=== PATIENT | male | born 1965 | race Caucasian/White ===

== ENCOUNTER 2020-01-02 00:35 | Outpatient (CLI) | payer BC, OTHER, SELFPAY | END 2020-01-02 00:36 | disposition home or self-care (01) | LOC: ANHCOVIDDT 00:36 | PROVIDERS: PCP Family Medicine; Visit Provider Internal Medicine Gastroenterology | DX: Z01.818 Encounter for other preprocedural examination (principal); Z11.59 Encounter for screening for other viral diseases | CPT/HCPCS: 87635; C9803; U0003 ==

== ENCOUNTER 2020-01-05 00:49 | Day surgery (SDC) | payer BC, OTHER, SELFPAY ==
[2019-12-31 14:29] VITALS: BMI 33.8
--- NOTE | 2020-01-05 09:19 | P.PNAN_ITS ---
Anes - Initial Pre Proc Eval Procedure: Operation Date: 01/05/20 10:00 Proposed Procedures p Screening Colonoscopy - Gagan Arroyo MD Date/Time: 01/05/20 09:19 Surgeon: Gagan Arroyo MD Pre Op Diagnosis: Neoplasm Screening Patient Data Age: 54 Gender: M Height: 5 ft 7 in Weight: 98 kg Allergies Allergy/AdvReac Type Severity Reaction Status Date / Time No Known Allergies Allergy Verified 01/05/20 09:16 Home Medications Medication Instructions Recorded Confirmed Type pregabalin 225 mg capsule 225 mg PO BID #60 cap 07/28/19 12/31/19 Rx lisinopril 20 mg tablet 20 mg PO DAILY #30 tablet 09/24/19 12/31/19 Rx gabapentin 300 mg capsule 300 mg PO TID #90 cap 10/12/19 12/31/19 Rx meloxicam 15 mg tablet 15 mg PO DAILY PRN #30 tablet 11/16/19 12/31/19 Rx hydrocodone 10 mg-acetaminophen 1 tablet PO Q4H PRN #180 tablet 12/10/19 0 12/31/19 Rx 325 mg tablet cholecalciferol (vitamin D3) 25 25 mcg PO DAILY 12/28/19 12/31/19 History mcg (1,000 unit) capsule esomeprazole magnesium 20 mg 40 mg PO DAILY cap 12/28/19 12/31/19 History capsule,delayed release fluoxetine 20 mg tablet 20 mg PO DAILY #30 tablet 12/28/19 12/31/19 Rx diphenhydramine HCl [Benadryl 25 mg PO HS PRN 12/31/19 12/31/19 History Allergy] orphenadrine citrate 100 mg 100 mg PO Q12H #60 tablet 01/01/20 Rx tablet,extended release Patient hx anesthesia problems: none Family hx anesthesia problems: none PMFSH Past Medical History Medical History Encounter for prostate cancer screening Essential (primary) hypertension Mixed hyperlipidemia Polyp of colon Vitamin B12 deficiency anemia Vitamin D insufficiency Family History Family History Mother Diabetes mellitus Hypertension Social History Social History Smoking status: Never smoker Alcohol intake: current Anes - Eval Final PreProcedure Day of Procedure 01/05/20 09:19 Patient weight: obese Heart: regular rate and rhythm Lungs: clear to auscultation Airway: Mallampati scale class 1 Neurological: alert and oriented Last oral intake: >/= 8 hours ASA classification: III Emergent: no Anesthetic plan: proceed Anesthesia type and monitoring: general GIVS and standard monitoring Informed Consent: The patient's anesthetic plan and its attendant risks and benefits were discussed with the patient/family/POA. Questions were solicited and answers provided to the satisfaction of the patient/family/POA.
[2020-01-05 09:22] VITALS: BP 121/84; PULSE 128; RESP 16; TEMP 36.2; O2SAT 97
[2020-01-05] MEDS: LACTATED RINGERS 1,000 ML 150 ML IV CONT (09:45)
--- NOTE | 2020-01-05 10:28 | PM.HPGS ---
History of Present Illness History of Present Illness Consent: Risks, benefits, and alternatives have been discussed and questions answered. Patient agrees to proceed with procedure. Chief complaint: Neoplasm Screening Narrative: Joel Fiore is a 54 year old male with history of polyps, due to have another colonoscopy Review of Systems Constitutional: Constitutional: Denies headache(s) and Denies weakness Eyes: Eyes: Denies blurry vision ENT: Reports Normal hearing present, Denies headache(s) and Denies neck pain Cardiovascular: Cardiovascular: Denies chest pain and Denies dyspnea Respiratory: Respiratory: Denies dyspnea Gastrointestinal: Gastrointestinal: Reports no additional gastrointestinal complaints Genitourinary: Genitourinary: Denies dysuria Musculoskeletal: Musculoskeletal: Denies neck pain Integumentary/Breasts: Skin/Breast: Denies dry skin Neurologic: Reports Normal hearing present, Denies headache(s) and Denies weakness Psychiatric: Psychiatric: Denies anxiety Endocrine: Endocrine: Denies change in body appearance Hematologic/Lymphatic: Hematologic/Lymphatic: Denies easy bleeding Allergic/Immunologic: Allergic/Immunologic: Denies urticaria PMFSH Past Medical History Medical History Encounter for prostate cancer screening Essential (primary) hypertension Mixed hyperlipidemia Polyp of colon Vitamin B12 deficiency anemia Vitamin D insufficiency Family History Family History Mother Diabetes mellitus Hypertension Social History Social History Smoking status: Never smoker Alcohol intake: current Meds Home Medications and Allergies Home Medications Medication Instructions Recorded Confirmed Type pregabalin 225 mg capsule 225 mg PO BID #60 cap 07/28/19 12/31/19 Rx lisinopril 20 mg tablet 20 mg PO DAILY #30 tablet 09/24/19 01/05/20 Rx gabapentin 300 mg capsule 300 mg PO TID #90 cap 10/12/19 12/31/19 Rx meloxicam 15 mg tablet 15 mg PO DAILY PRN #30 tablet 11/16/19 12/31/19 Rx hydrocodone 10 mg-acetaminophen 1 tablet PO Q4H PRN #180 tablet 12/10/19 12/31/19 Rx 325 mg tablet cholecalciferol (vitamin D3) 25 25 mcg PO DAILY 12/28/19 12/31/19 History mcg (1,000 unit) capsule esomeprazole magnesium 20 mg 40 mg PO DAILY cap 12/28/19 12/31/19 History capsule,delayed release fluoxetine 20 mg tablet 20 mg PO DAILY #30 tablet 12/28/19 12/31/19 Rx diphenhydramine HCl [Benadryl 25 mg PO HS PRN 12/31/19 12/31/19 History Allergy] orphenadrine citrate 100 mg 100 mg PO Q12H #60 tablet 01/01/20 Rx tablet,extended release pregabalin [Lyrica] 225 mg PO DAILY 01/05/20 01/05/20 History Allergies Allergy/AdvReac Type Severity Reaction Status Date / Time No Known Allergies Allergy Verified 01/05/20 09:16 Vital Signs Vital Signs - 24 hr 01/05/20 09:22 Temperature 97.1 F L Pulse Rate 128 H Respiratory Rate 16 Blood Pressure 121/84 Pulse Oximetry 97 Exam Const: General: comfortable and no acute distress HENMT: General nose exam: Normal nares present Eyes: General: appearance normal, both eyes and all related structures Neck: Neck: no JVD Resp: Auscultation: clear to auscultation bilaterally Cardio: Rate: regular rate Rhythm: regular rhythm GI: Inspection: non-distended GI Palp: Yes Soft to palpation Skin: General skin exam: normal color Neuro: General: gait normal Speech: normal speech Extrem: General: normal to inspection Psych: Mental Status: mental status grossly normal Assessment and Plan Assessment and plan (1) Polyp of colon: Qualifiers: Colon polyp type: unspecified Colon location: unspecified part of colon Qualified Code(s): K63.5 - Polyp of colon Code(s): K63.5 - Polyp of colon Status: Acute Assessment and Plan: will proc
[2020-01-05 10:46] VITALS: BP 91/54; PULSE 101; RESP 16; O2SAT 96
[2020-01-05 10:56] VITALS: BP 97/56; PULSE 99; RESP 17; O2SAT 96
[2020-01-05 11:06] VITALS: BP 106/65; PULSE 95; RESP 18; O2SAT 96
== END 2020-01-05 11:20 | disposition home or self-care (01) ==
PROVIDERS: PCP Family Medicine; Visit Provider Internal Medicine Gastroenterology
PROC: 0DJD8ZZ Inspection of Lower Intestinal Tract, Via Natural or Artificial Opening Endoscopic (ICD-10-PCS; CPT 45378; principal; 2020-01-05 10:00)
DX: Z12.11 Encounter for screening for malignant neoplasm of colon (principal); D12.3 Benign neoplasm of transverse colon; I10 Essential (primary) hypertension; E78.2 Mixed hyperlipidemia; E55.9 Vitamin D deficiency, unspecified; D51.3 Other dietary vitamin B12 deficiency anemia; E66.9 Obesity, unspecified; Z68.32 Body mass index [BMI] 32.0-32.9, adult
CPT/HCPCS: 45385; 88305; J2704; J7120

== ENCOUNTER 2020-06-01 08:19 | Outpatient (CLI) | payer BC, OTHER, SELFPAY ==
--- NOTE | 2020-06-01 11:30 | NEURO_ITS ---
Patient Number: [id number] Impression: # Complains of severe cramps in lower extremities more than upper extremities. # Normal nerve conduction study, motor and sensory, of upper and lower extremities. # Normal needle/EMG exam with no neurogenic changes or myotonia. # Left tibial anterior muscle short lasting cramp noted on needle/EMG. # Clinical correlation recommended. Nerve Conduction Studies Anti Sensory Summary Table Stim Site NR Peak (ms) P-T Amp (?V) Site1 Site2 Delta-P (ms) Dist (cm) Alcides (m/s) Left Median Anti Sensory (2-3nd Digit) Wrist 2.5 118.1 Wrist 2-3nd Digit 2.5 14.0 56 Wrist 2.7 118.5 Wrist 2-3nd Digit 2.5 14.0 56 Right Median Anti Sensory (2-3nd Digit) Wrist 2.5 93.1 Wrist 2-3nd Digit 2.5 14.0 56 Wrist 2.5 99.6 Wrist 2-3nd Digit 2.5 14.0 56 Left Radial Anti Sensory (Base 1st Digit) Wrist 2.2 33.6 Wrist Base 1st Digit 2.2 0.0 Right Radial Anti Sensory (Base 1st Digit) Wrist 2.5 24.5 Wrist Base 1st Digit 2.5 0.0 Left Sup Fibular Anti Sensory (Ant Lat Mall) 14 cm 3.7 6.8 14 cm Ant Lat Mall 3.7 16.0 43 Right Sup Fibular Anti Sensory (Ant Lat Mall) 14 cm 3.9 5.7 14 cm Ant Lat Mall 3.9 16.0 41 Left Sural Anti Sensory (Lat Mall) Calf 3.9 6.2 Calf Lat Mall 3.9 16.0 41 Right Sural Anti Sensory (Lat Mall) Calf 3.9 28.9 Calf Lat Mall 3.9 16.0 41 Left Ulnar Anti Sensory (5th Digit) Wrist 2.3 99.2 Wrist 5th Digit 2.3 14.0 61 Right Ulnar Anti Sensory (5th Digit) Wrist 2.4 96.2 Wrist 5th Digit 2.4 14.0 58 Motor Summary Table Stim Site NR Onset (ms) O-P Amp (mV) Site1 Site2 Delta-0 (ms) Dist (cm) Alcides (m/s) Left Median Motor (Abd Poll Brev) Wrist 2.9 7.1 Elbow Wrist 4.6 28.0 61 Elbow 7.5 4.6 Right Median Motor (Abd Poll Brev) Wrist 3.0 3.2 Elbow Wrist 5.1 29.0 57 Elbow 8.1 2.3 Left Peroneal Motor (Vastus Med) Ankle 4.5 3.0 Popit Ankle 8.1 39.0 48 Popit 12.6 2.4 Right Peroneal Motor (Vastus Med) Ankle 4.0 3.3 Popit Ankle 7.6 38.0 50 Popit 11.6 2.7 Left Tibial Motor (Abd [place] Brev) Ankle 4.9 7.1 Knee Ankle 9.5 42.0 44 Knee 14.4 5.5 Right Tibial Motor (Abd [place] Brev) Ankle 4.4 7.2 Knee Ankle 9.4 42.0 45 Knee 13.8 4.7 Left Ulnar Motor (Abd Dig Minimi) Wrist 2.7 8.5 A Elbow Wrist 4.9 29.0 59 A Elbow 7.6 6.6 Right Ulnar Motor (Abd Dig Minimi) Wrist 2.8 7.2 A Elbow Wrist 5.3 30.0 57 A Elbow 8.1 6.9 F Wave Studies NR F-Lat (ms) L-R F-Lat (ms) Left Median (Mrkrs) (Abd Poll Brev) 28.03 0.42 Right Median (Mrkrs) (Abd Poll Brev) 27.61 0.42 Left Peroneal (Mrkrs) (EDB) 49.42 0.24 Right Peroneal (Mrkrs) (EDB) 49.18 0.24 Left Tibial (Mrkrs) (Abd Hallucis) 50.60 0.20 Right Tibial (Mrkrs) (Abd Hallucis) 50.80 0.20 Left Ulnar (Mrkrs) (Abd Dig Min) 27.80 0.45 Right Ulnar (Mrkrs) (Abd Dig Min) 27.35 0.45 EMG Side Muscle Nerve Root Ins Act Fibs Amp Dur Recrt Comment Right 1stDorInt Ulnar C8-T1 Nml Nml Nml Nml Nml Right Ext Indicis Radial (Post Int) C7-8 Nml Nml Nml Nml Nml Right Ext Digitorum Radial (Post Int) C7-8 Nml Nml Nml Nml Nml Right BrachioRad Radial C5-6 Nml Nml Nml Nml Nml Right PronatorTeres Media
== END 2020-06-01 08:20 | disposition home or self-care (01) ==
PROVIDERS: PCP Family Medicine; Visit Provider Family Medicine
DX: R25.2 Cramp and spasm (principal)
CPT/HCPCS: 95886; 95913

== ENCOUNTER 2022-04-02 05:08 | Day surgery (SDC) | payer OTHER, SELFPAY ==
[2022-03-15 14:06] VITALS: BMI 29.8
--- NOTE | 2022-04-02 07:50 | WPDANESEPPF ---
Anes - Initial Pre Proc Eval Procedure: Operation Date: 04/02/22 11:00 Proposed Procedures p Esophagogastroduodenoscopy - Gagan Arroyo MD Date/Time: 04/02/22 07:50 Surgeon: Gagan Arroyo MD Pre Op Diagnosis: GERD Patient Data Age: 57 Gender: M Height: 1.7 m Weight: 86.5 kg Allergies Allergy/AdvReac Type Severity Reaction Status Date / Time No Known Allergies Allergy Verified 04/02/22 09:45 Home Medications Medication Instructions Recorded Confirmed Type diphenhydramine HCl 25 mg tablet 25 mg PO HS PRN allergies 12/31/19 03/15/22 History (Benadryl Allergy) diazepam 10 mg tablet 10 mg PO BID PRN muscle spasm #60 05/30/20 03/15/22 Rx tabs pregabalin 225 mg capsule (Lyrica) 225 mg PO BID #60 caps 05/30/20 03/15/22 Rx hydrocodone 7.5 mg-acetaminophen 1 tablet PO Q8H PRN pain #90 tabs 07/27/20 03/15/22 Rx 325 mg tablet ([place]) Al hyd-Mg tr-alg ac-sod bicarb 80 1 tablet PO DAILY PRN Indigestion 03/15/22 03/15/22 History mg-14.2 mg chewable tablet (Gaviscon) aspirin 81 mg tablet 81 mg PO HS 03/15/22 03/15/22 History esomeprazole magnesium 40 mg 40 mg PO HS 03/15/22 03/15/22 History capsule,delayed release (Nexium) fluticasone propionate 50 2 spray intranasal BID 03/15/22 03/15/22 History mcg/actuation nasal spray,suspension ropinirole 0.5 mg tablet 0.5 mg PO HS 03/15/22 03/15/22 History Patient hx anesthesia problems: none Family hx anesthesia problems: none Results Review: All pre-operative results and documents have been reviewed as part of the pre-operative evaluation. [facility] Past Medical History Medical History (Updated 04/02/22 @ 07:51 by Miki Guillen DO) Chronic, continuous use of opioids Encounter for prostate cancer screening Essential (primary) hypertension Fibromyalgia GERD (gastroesophageal reflux disease) Mixed hyperlipidemia BROCK on CPAP Polyneuropathy Polyp of colon Restless legs syndrome Vitamin B12 deficiency anemia Vitamin D insufficiency Surgical History Surgical History (Updated 04/02/22 @ 07:51 by Miki Guillen DO) Hx of fusion of cervical spine C5-7 Family History Family History Mother Diabetes mellitus Hypertension Social History Social History Smoking status: Never smoker Alcohol intake: current Alcohol use details: 2x monthly Substance use type: does not use Living arrangements: alone Spiritual care concerns: No Anes - Eval Final PreProcedure Day of Procedure 04/02/22 07:50 Patient weight: overweight Heart: regular rate and rhythm Lungs: clear to auscultation Airway: Mallampati scale class II Neurological: alert and oriented Last oral intake: >/= 8 hours ASA classification: III Emergent: no Anesthetic plan: proceed Anesthesia type and monitoring: general GIVS and standard monitoring Results Review: All pre-operative results and documents have been reviewed as part of the pre-operative evaluation. Informed Consent: The patient's anesthetic plan and its attendant risks and benefits were discussed with the patient/family/POA. Questions were solicited and answers provided to the satisfaction of the patient/family/POA.
[2022-04-02 09:46] VITALS: BP 118/90; PULSE 96; RESP 18; TEMP 36.2; O2SAT 98
[2022-04-02] MEDS: LACTATED RINGERS 1,000 ML 150 ML IV CONT (09:56)
--- NOTE | 2022-04-02 10:18 | PM.HPGS ---
History of Present Illness History of Present Illness Consent: Risks, benefits, and alternatives have been discussed and questions answered. Patient agrees to proceed with procedure. Chief complaint: GERD Narrative: Joel Fiore is a 57 year old male with gerd for several years, used to be on prilosec and most recently on nexium 40 mg at bedtime but still will have breakthrough, once even had to come to ER because chest pain, never had egd Review of Systems Constitutional: Constitutional: Denies headache(s) and Denies weakness Eyes: Eyes: Denies blurry vision ENT: Reports Normal hearing present, Denies headache(s) and Denies neck pain Cardiovascular: Cardiovascular: Denies chest pain and Denies dyspnea Respiratory: Respiratory: Denies dyspnea Gastrointestinal: Gastrointestinal: Reports no additional gastrointestinal complaints Genitourinary: Genitourinary: Denies dysuria Musculoskeletal: Musculoskeletal: Denies neck pain Integumentary/Breasts: Skin/Breast: Denies dry skin Neurologic: Reports Normal hearing present, Denies headache(s) and Denies weakness Psychiatric: Psychiatric: Denies anxiety Endocrine: Endocrine: Denies change in body appearance Hematologic/Lymphatic: Hematologic/Lymphatic: Denies easy bleeding Allergic/Immunologic: Allergic/Immunologic: Denies urticaria PMFSH Past Medical History Medical History (Updated 04/02/22 @ 07:51 by Miki Guillen DO) Chronic, continuous use of opioids Encounter for prostate cancer screening Essential (primary) hypertension Fibromyalgia GERD (gastroesophageal reflux disease) Mixed hyperlipidemia BROCK on CPAP Polyneuropathy Polyp of colon Restless legs syndrome Vitamin B12 deficiency anemia Vitamin D insufficiency Surgical History Surgical History (Updated 04/02/22 @ 07:51 by Miki Guillen DO) Hx of fusion of cervical spine C5-7 Family History Family History Mother Diabetes mellitus Hypertension Social History Social History Smoking status: Never smoker Alcohol intake: current Alcohol use details: 2x monthly Substance use type: does not use Living arrangements: alone Spiritual care concerns: No Meds Home Medications and Allergies Home Medications Medication Instructions Recorded Confirmed Type diphenhydramine HCl 25 mg tablet 25 mg PO HS PRN allergies 12/31/19 03/15/22 History (Benadryl Allergy) diazepam 10 mg tablet 10 mg PO BID PRN muscle spasm #60 05/30/20 03/15/22 Rx tabs pregabalin 225 mg capsule (Lyrica) 225 mg PO BID #60 caps 05/30/20 03/15/22 Rx hydrocodone 7.5 mg-acetaminophen 1 tablet PO Q8H PRN pain #90 tabs 07/27/20 03/15/22 Rx 325 mg tablet ([place]) Al hyd-Mg tr-alg ac-sod bicarb 80 1 tablet PO DAILY PRN Indigestion 03/15/22 03/15/22 History mg-14.2 mg chewable tablet (Gaviscon) aspirin 81 mg tablet 81 mg PO HS 03/15/22 03/15/22 History esomeprazole magnesium 40 mg 40 mg PO HS 03/15/22 03/15/22 History capsule,delayed release (Nexium) fluticasone propionate 50 2 spray intranasal BID 03/15/22 03/15/22 History mcg/actuation nasal spray,suspension ropinirole 0.5 mg tablet 0.5 mg PO HS 03/15/22 03/15/22 History Allergies Allergy/AdvReac Type Severity Reaction Status Date / Time No Known Allergies Allergy Verified 04/02/22 09:45 Vital Signs Vital Signs - 24 hr 04/02/22 09:46 Temperature 97.1 F L Pulse Rate 96 Respiratory Rate 18 Blood Pressure 118/90 Pulse Oximetry 98 Oxygen Delivery Room Air Exam Const: General: comfortable and no acute distress HENMT: General nose exam: Normal nares present Eyes: General: appearance normal, both eyes and all related structures Neck: Neck: no JVD Resp: Auscultation: clear to auscultation bilaterally Cardio: Rate: regular rate Rhythm: regular rhythm GI: Inspection: non-distended
[2022-04-02 10:32] VITALS: BP 115/79; PULSE 88; RESP 20; O2SAT 96
[2022-04-02 10:42] VITALS: BP 121/86; PULSE 82; RESP 15; O2SAT 97
[2022-04-02 10:52] VITALS: BP 118/83; PULSE 79; RESP 14; O2SAT 96
== END 2022-04-02 11:05 | disposition home or self-care (01) ==
PROVIDERS: PCP Emergency Medicine; Visit Provider Internal Medicine Gastroenterology
PROC: 0DJ08ZZ Inspection of Upper Intestinal Tract, Via Natural or Artificial Opening Endoscopic (ICD-10-PCS; CPT 43235; principal; 2022-04-02 11:00)
DX: K21.9 Gastro-esophageal reflux disease without esophagitis (principal); K29.50 Unspecified chronic gastritis without bleeding; I10 Essential (primary) hypertension; E78.2 Mixed hyperlipidemia; G47.33 Obstructive sleep apnea (adult) (pediatric); E55.9 Vitamin D deficiency, unspecified; D51.3 Other dietary vitamin B12 deficiency anemia; M79.7 Fibromyalgia; G62.9 Polyneuropathy, unspecified; G25.81 Restless legs syndrome; Z79.82 Long term (current) use of aspirin; Z98.1 Arthrodesis status
CPT/HCPCS: 43239; 88305; J2704; J7120

== ENCOUNTER → 2022-06-27 07:39 | Outpatient (CLI) | payer MEDICARE, OTHER, SELFPAY ==
--- NOTE | ~2022-06-27 | MR_ITS ---
EXAMINATION: MR cervical spine wo con DATE: 06/27/2022 08:11 INDICATION: Neck pain. Cervical radiculopathy. TECHNIQUE: Magnetic resonance imaging (MRI) of the cervical spine was performed without intravenous c ontrast. Sequences included sagittal T2-weighted FSE, sagittal T2-weighted FS FSE, sagittal T1-weight ed FSE, axial MERGE, and axial T2-weighted FSE. COMPARISON: None FINDINGS: There is 5 degrees dextrocurvature of cervical spine. There is 2 mm retrolisthesis of C3 on C4 and C4 and C5. There are changes of anterior fusion procedures at C5-C6 and C6-C7 with interbody devices and anterior plate and screws. Vertebral body heights are normal. There is mildly decreased d isc height at C3-C4 and C4-C5. The spinal cord signal intensity is normal. The following disc levels are specifically discussed: C2-C3: The disc does not extend beyond the endplate margin. There is no uncovertebral joint osteoarth ritis. There is mild bilateral facet joint osteoarthritis. There is no neural foraminal stenosis. The re is no central canal stenosis. C3-C4: The disc is bulging. There is severe bilateral uncovertebral joint osteoarthritis. There is mi ld left facet joint osteoarthritis. There is mild right and moderate left neural foraminal stenosis. There is mild central canal stenosis. C4-C5: The disc is bulging. There is severe right and moderate left uncovertebral joint osteoarthriti s. There is moderate bilateral facet joint osteoarthritis. There is moderate right and mild left neur al foraminal stenosis. There is mild central canal stenosis. C5-C6: There is mild bilateral uncovertebral joint hypertrophy. There is no facet joint osteoarthriti s. There is mild bilateral neural foraminal stenosis. There is no central canal stenosis. C6-C7: There is mild bilateral uncovertebral joint hypertrophy. There is no facet joint osteoarthriti s. There is mild bilateral neural foraminal stenosis. There is no central canal stenosis. C7-T1: There is no uncovertebral joint osteoarthritis. There is mild bilateral facet joint osteoarthr itis. There is mild bilateral neural foraminal stenosis. There is no central canal stenosis. IMPRESSION: 1. Moderate cervical spondylosis. 2. Anterior fusion procedures at C5-C6 and C6-C7. Reviewed, dictated and finalized at location A. CUTTER
== END ==
PROVIDERS: PCP Family Medicine Sports Medicine; Visit Provider Anesthesiology
DX: M54.12 Radiculopathy, cervical region (principal); M43.02 Spondylolysis, cervical region; Z98.1 Arthrodesis status
CPT/HCPCS: 72141

== ENCOUNTER → 2022-08-06 12:58 | Outpatient (CLI) | payer MEDICARE, OTHER, SELFPAY ==
--- NOTE | ~2022-08-06 | MR_ITS ---
MRI of the lumbar spine Clinical History: Radiculopathy Technique: Axial T2-weighted images, and sagittal T1-weighted, T2-weighted, and T2 fat-sat images wer e acquired. Findings: There is no fracture or subluxation of the lumbar spine. Vertebral bodies maintain normal h eight and alignment. No suspicious bone marrow signal abnormality seen. At L1-L2, there is no disc bulge or herniation. There is minimal facet joint arthropathy. No spinal c anal stenosis or neural foraminal narrowing. At L2-L3, there is no disc bulge or herniation. There is minimal facet arthropathy. No spinal canal s tenosis or neural foraminal narrowing. At L3-L4, there is no disc bulge or herniation. No spinal canal stenosis or neural foraminal narrowin g. At L4-L5, there is no significant disc bulge or herniation. There is facet joint arthropathy. No spin al canal stenosis or neural foraminal narrowing. At L5-S1, there is no disc bulge or herniation. There is mild facet arthropathy. No spinal canal sten osis or neural foraminal narrowing. Paravertebral soft tissues are unremarkable. Impression: No spinal canal stenosis or neural foraminal narrowing. No fracture or subluxation. Mild facet joint degenerative changes, as above. Reviewed, dictated and finalized at location M. [employer] Impression: No spinal canal stenosis or neural foraminal narrowing. No fracture or subluxat ion. Mild facet joint degenerative changes, as above.
== END ==
PROVIDERS: PCP Family Medicine Sports Medicine; Visit Provider Anesthesiology
DX: M54.16 Radiculopathy, lumbar region (principal)
CPT/HCPCS: 72148